=== PATIENT | female | born 1950 | race Caucasian/White ===

== ENCOUNTER → 2018-03-08 11:27 | Outpatient (CLI) | payer OTHER, SELFPAY ==
--- NOTE | 2018-03-08 | DI.MG.S_ITS ---
BILATERAL DIGITAL SCREENING MAMMOGRAM 3D/2D WITH CAD: 03/08/2018 CLINICAL: Routine screening. Comparison is made to exams dated: 02/03/2016 mammogram, 12/30/2014 mammogram, and 12/22/2014 mammogram - [facility]. There are scattered fibroglandular elements in both breasts. Current study was also evaluated with a Computer Aided Detection (CAD) system. No significant masses, calcifications, or other findings are seen in either breast. There has been no significant interval change. IMPRESSION: NEGATIVE There is no mammographic evidence of malignancy. A 1 year screening mammogram is recommended. This exam was interpreted at Station ID: [id number]. NOTE: For mammograms, a report in lay terms will be sent to the patient. Approximately 15% of breast malignancies will not be visualized mammographically. In the management of a palpable breast mass, a negative mammogram must not discourage biopsy of a clinically suspicious lesion. Electronically Signed By: Alicia jordan/kemal:03/08/2018 12:47:03 letter sent: Normal Exam ACR BI-RADS Category 1: Negative 3341F
== END ==
PROVIDERS: Visit Provider Family Medicine
DX: Z12.31 Encounter for screening mammogram for malignant neoplasm of breast (principal)
CPT/HCPCS: 77063; 77067

== ENCOUNTER → 2018-04-19 11:31 | Outpatient (CLI) | payer OTHER, SELFPAY ==
--- NOTE | 2018-04-19 | DI.RAD.S_ITS ---
PROCEDURE: XR KNEE RT 3V INDICATIONS: RIGHT KNEE PAIN, S/P PIVOTING INJURY 2 WEEKS AGO TECHNIQUE: 3 views of the knee were acquired. COMPARISON: None. FINDINGS: Bones: No fractures or dislocations. No suspicious bony lesions. Joint space narrowing is most marked in the medial and femoral patellar compartments. Marginal bony spurring at all 3 compartments. Soft tissues: Large joint effusion. No suspicious soft tissue calcifications. IMPRESSION: 1. Tricompartmental osteoarthritis 2. Large joint effusion could reflect internal derangement. Dictated by: Tobias Peter M.D. on 04/19/2018 at 13:02 Approved by: Tobias Peter M.D. on 04/19/2018 at 13:03
== END ==
PROVIDERS: Family Provider Orthopaedic Surgery; Visit Provider Nurse Practitioner Family
DX: M25.461 Effusion, right knee (principal); M17.11 Unilateral primary osteoarthritis, right knee; M25.561 Pain in right knee
CPT/HCPCS: 73562

== ENCOUNTER → 2018-08-28 10:29 | Outpatient (CLI) | payer OTHER, SELFPAY ==
--- NOTE | 2018-08-28 | DI.RAD.S_ITS ---
PROCEDURE: XR FOREARM RT 2V INDICATIONS: RIGHT FOREARM PAIN TECHNIQUE: 2 views of the forearm were acquired. COMPARISON: None. FINDINGS: Bones: No fractures or dislocations. No suspicious bony lesions. Mild osteophytic changes along radial aspect of right wrist and right elbow joint is seen. Soft tissues: No suspicious soft tissue calcifications or masses. IMPRESSION: Mild osteoarthritic changes in the right wrist and right elbow joints. No fracture or dislocation. Dictated by: Denzel Morfin M.D. on 08/28/2018 at 12:12 Approved by: Denzel Morfin M.D. on 08/28/2018 at 12:13
== END ==
PROVIDERS: Family Provider Orthopaedic Surgery; PCP Family Medicine; Visit Provider Family Medicine
DX: M79.631 Pain in right forearm (principal); M19.021 Primary osteoarthritis, right elbow; M19.031 Primary osteoarthritis, right wrist
CPT/HCPCS: 73090

== ENCOUNTER → 2018-12-19 10:20 | Outpatient (CLI) | payer OTHER, SELFPAY ==
--- NOTE | 2018-12-19 | DI.RAD.S_ITS ---
PROCEDURE: XR FOOT LT MIN 3V INDICATIONS: FOREFOOT PAIN 2ND AND 3RD METATARSALS TECHNIQUE: 3 views of the foot were acquired. COMPARISON: [facility], , FOOT 3V LEFT, 11/29/2012, 15:36. FINDINGS: Bones: No fractures or dislocations. No suspicious bony lesions. Note is made of an accessory ossicle at the lateral base of the third proximal phalanx. The exostosis previously identified at the lateral border of the base of the first proximal phalanx is unchanged. An accessory ossicle is lateral to the cuboid bone. Soft tissues: No tibiotalar joint effusion. Achilles tendon appears normal. IMPRESSION: Accessory ossicles as discussed, and also exostosis at the base of the first proximal phalanx laterally all appear stable over time. No recent trauma suspected. Dictated by: Leo Winters M.D. on 12/19/2018 at 10:48 Approved by: Leo Winters M.D. on 12/19/2018 at 10:50
== END ==
PROVIDERS: PCP Family Medicine; Visit Provider Family Medicine
DX: M79.672 Pain in left foot (principal); M89.9 Disorder of bone, unspecified
CPT/HCPCS: 73630

== ENCOUNTER → 2019-03-13 10:05 | Outpatient (CLI) | payer OTHER, SELFPAY ==
--- NOTE | 2019-03-13 | DI.MG.S_ITS ---
BILATERAL DIGITAL SCREENING MAMMOGRAM 3D/2D WITH CAD: 03/13/2019 CLINICAL: Routine screening. Comparison is made to exams dated: 03/08/2018 mammogram - [facility], 02/03/2016 mammogram, and 12/30/2014 mammogram - [facility]. There are scattered fibroglandular elements in both breasts. Current study was also evaluated with a Computer Aided Detection (CAD) system. No significant masses, calcifications, or other findings are seen in either breast. There has been no significant interval change. IMPRESSION: NEGATIVE There is no mammographic evidence of malignancy. A 1 year screening mammogram is recommended. This exam was interpreted at Station ID: [id number]. NOTE: For mammograms, a report in lay terms will be sent to the patient. Approximately 15% of breast malignancies will not be visualized mammographically. In the management of a palpable breast mass, a negative mammogram must not discourage biopsy of a clinically suspicious lesion. Electronically Signed By: Ender steve/kemal:03/13/2019 11:54:16 letter sent: Normal Exam ACR BI-RADS Category 1: Negative 3341F
== END ==
PROVIDERS: PCP Family Medicine; Visit Provider Family Medicine
DX: Z12.31 Encounter for screening mammogram for malignant neoplasm of breast (principal)
CPT/HCPCS: 77063; 77067

== ENCOUNTER → 2020-03-26 14:25 | Outpatient (CLI) | payer OTHER, SELFPAY ==
--- NOTE | 2020-03-26 | DI.MG.S_ITS ---
BILATERAL DIGITAL SCREENING MAMMOGRAM 3D/2D WITH CAD: 03/26/2020 CLINICAL: Routine screening. Comparison is made to exams dated: 03/13/2019 mammogram and 03/08/2018 mammogram - [facility]. There are scattered fibroglandular elements in both breasts. Current study was also evaluated with a Computer Aided Detection (CAD) system. No significant masses, calcifications, or other findings are seen in either breast. There has been no significant interval change. IMPRESSION: NEGATIVE There is no mammographic evidence of malignancy. A 1 year screening mammogram is recommended. This exam was interpreted at Station ID: [id number]. NOTE: For mammograms, a report in lay terms will be sent to the patient. Approximately 15% of breast malignancies will not be visualized mammographically. In the management of a palpable breast mass, a negative mammogram must not discourage biopsy of a clinically suspicious lesion. Electronically Signed By: Sylvain cedillo/kemal:03/26/2020 19:08:33 letter sent: Normal Exam ACR BI-RADS Category 1: Negative 3341F
== END ==
PROVIDERS: PCP Family Medicine; Referring Provider Family Medicine; Visit Provider Family Medicine
DX: Z12.31 Encounter for screening mammogram for malignant neoplasm of breast (principal); Z78.0 Asymptomatic menopausal state; R29.890 Loss of height
CPT/HCPCS: 77063; 77067; 77080

== ENCOUNTER → 2021-04-07 10:26 | Outpatient (CLI) | payer OTHER, SELFPAY ==
--- NOTE | 2021-04-07 | DI.MG.S_ITS ---
BILATERAL DIGITAL SCREENING MAMMOGRAM 3D/2D WITH CAD: 04/07/2021 CLINICAL: Routine screening. Comparison is made to exams dated: 03/26/2020 mammogram, 03/13/2019 mammogram, and 03/08/2018 mammogram - [facility]. There are scattered fibroglandular elements in both breasts. Current study was also evaluated with a Computer Aided Detection (CAD) system. No significant masses, calcifications, or other findings are seen in either breast. There has been no significant interval change. IMPRESSION: NEGATIVE There is no mammographic evidence of malignancy. A 1 year screening mammogram is recommended. This exam was interpreted at Station ID: [id number]. NOTE: For mammograms, a report in lay terms will be sent to the patient. Approximately 15% of breast malignancies will not be visualized mammographically. In the management of a palpable breast mass, a negative mammogram must not discourage biopsy of a clinically suspicious lesion. Electronically Signed By: Ender steve/kemal:04/07/2021 10:46:46 letter sent: Normal Exam ACR BI-RADS Category 1: Negative 3341F
== END ==
PROVIDERS: PCP Family Medicine; Referring Provider Family Medicine; Visit Provider Family Medicine
DX: Z12.31 Encounter for screening mammogram for malignant neoplasm of breast (principal)
CPT/HCPCS: 77063; 77067

== ENCOUNTER → 2021-08-11 14:57 | Outpatient (CLI) | payer OTHER, SELFPAY ==
--- NOTE | 2021-08-11 14:59 | DI.RAD.S_ITS ---
PROCEDURE: XR HIP W PEL IF DONE RT 2V INDICATIONS: RT HIP PAIN TECHNIQUE: AP pelvis with lateral view(s) of the right hip(s). COMPARISON: None. FINDINGS: Bones: No fractures or dislocations. Pelvic ring appears intact. No suspicious bony lesions. Moderate right and [id number] left degenerative hip joint space narrowing. Periarticular osteophytes are present. No erosions. Degenerative changes are present within the lower lumbar spine. Soft tissues: The visualized bowel gas pattern is normal. No suspicious soft tissue calcifications. IMPRESSION: Arthritic changes within the hips and lower lumbar spine. Dictated by: Kaley Byrd M.D. on 08/11/2021 at 16:51 Approved by: Kaley Byrd M.D. on 08/11/2021 at 16:52
== END ==
PROVIDERS: PCP Family Medicine; Referring Provider Family Medicine; Visit Provider Family Medicine
DX: M25.551 Pain in right hip (principal); M47.816 Spondylosis without myelopathy or radiculopathy, lumbar region
CPT/HCPCS: 73502

== ENCOUNTER 2021-09-15 11:00 | Emergency (ER) | payer OTHER, SELFPAY ==
[2021-09-15] VITALS (7 sets, daily range): BP systolic 112–155; BP diastolic 66–89; PULSE 86–109; RESP 14–24; TEMP 36.3; O2SAT 95–97; BMI 36.8
--- NOTE | 2021-09-15 11:39 | DI.RAD.S_ITS ---
PROCEDURE: XR CHEST 1V INDICATIONS: chest pain TECHNIQUE: One view of the chest was acquired. COMPARISON: None. FINDINGS: Surgical changes and devices: None. Lungs and pleura: Lungs are clear. No pleural effusions or pneumothorax. Mediastinum: Mediastinal contours appear normal. Heart size is normal. Bones and chest wall: No suspicious bony lesions. Overlying soft tissues appear unremarkable. IMPRESSION: No acute process. Dictated by: Karen Steven M.D. on 09/15/2021 at 12:00 Approved by: Karen Steven M.D. on 09/15/2021 at 12:01
--- NOTE | 2021-09-15 12:45 | ED.GENADULT ---
HPI - General Adult General Chief complaint: Shortness of Breath/Dyspnea Stated complaint: SOB, Flux BP Time Seen by Provider: 09/15/21 12:44 Source: patient Mode of arrival: Ambulatory History of Present Illness HPI narrative: 71-year-old woman with history of hypertension and reflux presents with 24 hours of exertional dyspnea. She notes that yesterday while at work, with increased stresses and physical activity during the day, her blood pressure was fluctuating with numbers noted is low as 80/60 with minor tachycardia in the 110-120 range. She began drinking more water in the afternoon and was feeling better by the evening. This morning still having the exertional dyspnea and concerned enough that she comes in for further evaluation. She denies any recent fever, cough, chills. No recent headaches, nausea, vomiting, diarrhea, change to bowel or bladder habits and no black stools. Denies any abdominal pain, lower extremity edema, orthopnea. Is not having any palpitations. Related Data Home Medications Medication Instructions Recorded Confirmed aspirin 81 mg tablet,delayed 81 mg PO QDAY #0 05/10/16 release hydrochlorothiazide 25 mg tablet 25 mg PO QDAY #0 05/10/16 omeprazole 20 mg capsule,delayed 20 mg PO QDAY #0 05/10/16 release Allergies Allergy/AdvReac Type Severity Reaction Status Date / Time meperidine [From DEMEROL] Allergy Mild VOMITING Unverified 01/03/18 13:01 Sulfa (Sulfonamide Allergy Mild HIVES Unverified 01/03/18 13:01 Antibiotics) [SULFA (SULFONAMIDE ANTIBIOTICS)] Review of Systems Review of Systems Narrative: Remainder of complete review of systems is otherwise unremarkable except for that included in the HPI. Patient History Medical History (Updated 09/15/21 @ 14:07 by Rosi Preciado MD) Acid reflux Hypertension Social History Smoking Status: Never smoker Smoking Status: Never smoker alcohol intake frequency: 0-2 drinks per day Substance Use Type: does not use Exam Narrative Exam Narrative: General: Healthy appearing, in no acute distress. Able to give a complete and coherent history. Well-nourished well-developed HEENT: Moist mucous membranes, normal sclera with reactive pupils, Neck: No JVD, supple Respiratory: Lungs are clear to auscultation, no wheezing no rales no rhonchi. Full and symmetrical air movement Cardiac: Regular rate and rhythm no murmurs no bruits Abdomen: Soft, nontender, good bowel tones, no flank pain Skin: Warm and dry, no rashes Neurologic: Grossly neurologically intact with no obvious asymmetries or abnormalities Extremities: No trauma, well perfused, no lower extremity edema Psych: Cooperative, appropriate insight and affect Initial Vital Signs Initial Vital Signs: Vital Signs Temperature 97.4 F L 09/15/21 11:34 Pulse Rate 109 H 09/15/21 11:34 Respiratory Rate 16 09/15/21 11:34 Blood Pressure 155/89 H 09/15/21 11:34 Pulse Oximetry 96 09/15/21 11:34 Course Orders Ordered: ED Orders 09/15/21 11:39 XR chest 1V Stat EKG-12 Lead Stat 09/15/21 12:40 Complete Blood Count AUTO DIFF Stat Comprehensive Metabolic Panel Stat Lipase Stat Magnesium Stat Troponin & CK Cardiac Panel Stat Vital Signs Vital signs: Vital Signs - 8 hr 09/15/21 11:34 09/15/21 12:47 09/15/21 13:00 Temperature 97.4 F L Pulse Rate 109 H 107 H 92 H Respiratory Rate 16 24 18 Blood Pressure 155/89 H Pulse Oximetry 96 97 96 09/15/21 13:30 09/15/21 13:33 Temperature Pulse Rate 92 H 99 H Respiratory Rate 20 19 Blood Pressure 120/66 Pulse Oximetry 95 96 Medical Decision Making Lab Data Result diagrams: 09/15/21 12:40 09/15/21 12:40 Labs: Lab Results 09/15/21 09/15/21 Range/Units 12:40 12:40 WBC 10.6 (4.5-11.0) X10^3/uL RBC 4.56 (4.0-5.2) X10^6/uL Hgb 14.1 (12.0-16.0) g/dL Hct 40.9 (36-46) % MCV 89.8 (80-100) fL MCH 30.9 (26-34) PG MCHC 34.5 (30-36) % RDW 13.5 (11.6-14.8) % Plt Count 241 (150-400) X10^3/uL Neut % (Auto) 62.2 (50-75) % Lymph % (Auto) 26.5 (25-40) % [place] % (Auto) 8.6 (3-14) % Eos % (Auto) 2.0 (2-4) % Baso % (Auto) 0.7 (0-2) % Neut # (Auto) 6600 (6691-4861) /uL Lymph # (Auto) 2800 (2145-3700) /uL [place] # (Auto) 900 (0-900) /uL Eos # (Auto) 200 (0-450) /uL Baso # (Auto) 100 (0-100) /uL Sodium 139 (137-145) mmol/L Potassium 4.5 (3.4-5.1) mmol/L Chloride 103 (98-107) mmol/L Carbon Dioxide 33 H (22-32) mmol/L BUN 25 H (7-17) mg/dL Creatinine 0.85 (0.52-1.04) mg/dL Estimated GFR > 60.0 (>60) mL/min BUN/Creatinine Ratio 29.4 H (6-22) Glucose 135 H (80-110) mg/dL Calcium 10.1 (8.4-10.2) mg/dL Magnesium 2.2 (1.6-2.3) mg/dL Total Bilirubin 0.4 (0.2-1.3) mg/dL AST 23 (14-36) IU/L ALT 16 (<35) IU/L Alkaline Phosphatase 58 (38-126) U/L Total Creatine Kinase 46 (30-135) U/L CK-MB (CK-2) TNP CK-MB (CK-2) Rel Index TNP Troponin I < 0.012 (0.01-0.034) ng/mL Total Protein 7.8 (6.3-8.2) g/dL Albumin 4.3 (3.5-5.0) g/dL Globulin 3.5 (1.7-4.1) g/dL Albumin/Globulin Ratio 1.2 (1.0-2.8) Lipase 45 (23-300) U/L Imaging Data Chest x-ray: Radiologist's Impression: FINDINGS:? ? Surgical changes and devices:? None.? ? Lungs and pleura:? Lungs are clear.? No pleural effusions or pneumothorax.? ? Mediastinum:? Mediastinal contours appear normal.? Heart size is normal.? ? Bones and chest wall:? No suspicious bony lesions.? Overlying soft tissues appear unremarkable.? ? IMPRESSION:? No acute process. ? ? Dictated by: Karen Steven M.D. on 09/15/2021 at 12:00? ?? ECG Data Interpretation: Sinus tachycardia at a rate of 109 No acute ischemic changes Normal intervals, normal axis MDM Narrative Medical decision making narrative: 71-year-old woman who presents with exertional dyspnea and general malaise noted yesterday. Blood pressure had been a bit low and was as low as 80/60 came out nicely through the day in her symptoms did improve. She has no clinical signs of symptoms of stroke, acute coronary syndrome or actual heart attack, no pulmonary abnormalities including pneumothorax. She has normal liver and kidney function studies and no evidence of anemia. Today her exertional dyspnea has improved significantly. She had intermittent episodes of sinus tachycardia documented while she is reporting blood pressures. Today at rest blood pressure was 118/72 with resting heart rate of 82. I suspect that she is mildly dehydrated and have suggested that she stop her hydrochlorothiazide and increase her lisinopril to 10 mg. She will check blood pressures and heart rate daily and follow-up with her primary care physician. At this point she is safe for home discharge, have reviewed all findings with her and questions were answered. Discharge Plan Departure Patient Disposition: Home Clinical Impression: Hypertension, Shortness of Breath Instructions: DI for Shortness of Breath Activity Restrictions/Additional Instructions: Thank you for coming in today Your workup is very reassuring. I am not finding any life-threatening explanations to explain your dyspnea. Specifically there is no evidence of heart attack or acute coronary. You do not have heart failure, pneumonia, chronic abnormalities on your chest x-ray, pneumothorax, any signs of anemia or liver or kidney abnormalities appreciated with blood work Given your relative hypotension noted yesterday when you were feeling poorly I suspect that you are moderately dehydrated. I suspect hydrochlorothiazide may be responsible for this. I am going to ask you to STOP your hydrochlorthize Please incsrease your lisinopril to 10mg Please check blood pressures and heart rate daily for the next week and schedule a follow up apt with your PCP. If you have symptoms that are worsening, please feel free to return to the ER Prescriptions: No Action aspirin 81 MG tablet,delayed release (DR/EC) 81 mg PO QDAY Qty: 0 0RF omeprazole 20 MG capsule,delayed release(DR/EC) 20 mg PO QDAY Qty: 0 0RF hydrochlorothiazide 25 MG tablet 25 mg PO QDAY Qty: 0 0RF Referrals: Ashu Espinosa MD [Primary Care Provider] -
[2021-09-15 12:51] LABS: Add Manual Diff / Slide Review NO; Basophils Absolute Auto 100 /uL (0-100); Basophils Percent Auto 0.7 % (0-2); Eosinophils Absolute Auto 200 /uL (0-450); Hematocrit 40.9 % (36-46); Hemoglobin 14.1 g/dL (12.0-16.0); Lymphocytes Absolute Auto 2800 /uL (1100-4500); Lymphocytes Percent Auto 26.5 % (25-40); Mean Corpuscular HGB Conc 34.5 % (30-36); Mean Corpuscular Hemoglobin 30.9 PG (26-34); Mean Corpuscular Volume 89.8 fL (80-100); Monocytes Absolute Auto 900 /uL (0-900); Monocytes Percent Auto 8.6 % (3-14); Neutrophils Absolute Auto 6600 /uL (1500-7000); Neutrophils Percent Auto 62.2 % (50-75); Platelet Count 241 X10^3/uL (150-400); Red Blood Cell Count 4.56 X10^6/uL (4.0-5.2); Red Cell Distribution Width 13.5 % (11.6-14.8); White Blood Cell Count 10.6 X10^3/uL (4.5-11.0)
[2021-09-15 13:03] LABS: Alanine Aminotransferase 16 IU/L (<35); Albumin 4.3 g/dL (3.5-5.0); Albumin Globulin Ratio 1.2 (1.0-2.8); Alkaline Phosphatase 58 U/L (38-126); Aspartate Aminotransferase 23 IU/L (14-36); BUN Creatinine Ratio 29.4 (6-22); Bilirubin Total 0.4 mg/dL (0.2-1.3); Blood Urea Nitrogen 25 mg/dL (7-17); Calcium 10.1 mg/dL (8.4-10.2); Carbon Dioxide 33 mmol/L (22-32); Chloride 103 mmol/L (98-107); Creatine Kinase 46 U/L (30-135); Estimated Glomerular Filt Rate > 60.0 mL/min (>60); Globulin 3.5 g/dL (1.7-4.1); Glucose 135 mg/dL (80-110); HEMOLYSIS 16 (0-50); Lipase 45 U/L (23-300); Magnesium 2.2 mg/dL (1.6-2.3); Potassium 4.5 mmol/L (3.4-5.1); Sodium 139 mmol/L (137-145); Total Protein 7.8 g/dL (6.3-8.2)
[2021-09-15 13:15] LABS: Troponin I < 0.012 ng/mL (0.01-0.034)
== END 2021-09-15 14:43 | disposition home or self-care (01) ==
PROVIDERS: Emergency Provider Emergency Medicine; PCP Family Medicine
DX: I10 Essential (primary) hypertension (principal); R06.02 Shortness of breath; R00.0 Tachycardia, unspecified
CPT/HCPCS: 36415; 71045; 80053; 82550; 83690; 83735; 84484; 85025; 93005; 99284

== ENCOUNTER → 2022-04-09 10:39 | Outpatient (CLI) | payer OTHER, SELFPAY ==
--- NOTE | 2022-04-09 10:40 | DI.MG.S_ITS ---
BILATERAL DIGITAL SCREENING MAMMOGRAM 3D/2D WITH CAD: 04/09/2022 CLINICAL: Routine screening. Comparison is made to exams dated: 04/07/2021 mammogram, 03/26/2020 mammogram, 03/13/2019 mammogram, and 03/08/2018 mammogram - [facility]. There are scattered fibroglandular elements in both breasts. Current study was also evaluated with a Computer Aided Detection (CAD) system. No significant masses, calcifications, or other findings are seen in either breast. There has been no significant interval change. IMPRESSION: NEGATIVE There is no mammographic evidence of malignancy. A 1 year screening mammogram is recommended. Based on the Tyrer Cuzick model (a risk assessment model) the patient's lifetime risk is 5.7% and her 10 year risk is 3.9%. According to the ACR, ACS, and NCCN guidelines, an annual breast MRI exam along with mammogram is recommended if the patient's lifetime risk is 20% or greater. This exam was interpreted at Station ID: [id number]. NOTE: For mammograms, a report in lay terms will be sent to the patient. Approximately 15% of breast malignancies will not be visualized mammographically. In the management of a palpable breast mass, a negative mammogram must not discourage biopsy of a clinically suspicious lesion. Electronically Signed By: Sylvain cedillo/kemal:04/11/2022 09:09:23 letter sent: Normal Exam ACR BI-RADS Category 1: Negative 3341F
== END ==
PROVIDERS: PCP Family Medicine; Referring Provider Family Medicine; Visit Provider Family Medicine
DX: Z12.31 Encounter for screening mammogram for malignant neoplasm of breast (principal)
CPT/HCPCS: 77063; 77067

== ENCOUNTER → 2022-11-10 10:38 | Outpatient (CLI) | payer OTHER, SELFPAY ==
--- NOTE | 2022-11-10 | DI.RAD.S_ITS ---
PROCEDURE: XR HAND RT MIN 3V INDICATIONS: R thumb pain TECHNIQUE: 3 views of the hand(s) acquired. COMPARISON: None. FINDINGS: Bones: No fractures or dislocations. Osteoarthritic changes are noted throughout right hand and wrist joints more notably at 1st CMC joint, 1st interphalangeal joint and 2nd and 3rd distal interphalangeal joints. No gross bony erosive changes. Carpal bones are normally aligned. No suspicious bony lesions. Soft tissues: No suspicious soft tissue calcifications. IMPRESSION: Osteoarthritic changes are noted throughout right hand and wrist joints as above. No fracture or dislocation. No gross bony erosive changes. Dictated by: Denzel Morfin M.D. on 11/10/2022 at 13:46 Approved by: Denzel Morfin M.D. on 11/10/2022 at 13:51
== END ==
PROVIDERS: PCP Family Medicine; Referring Provider Family Medicine; Visit Provider Family Medicine
DX: Z78.0 Asymptomatic menopausal state (principal); M79.644 Pain in right finger(s); Z13.820 Encounter for screening for osteoporosis
CPT/HCPCS: 73130; 77080

== ENCOUNTER → 2023-04-19 15:02 | Outpatient (CLI) | payer OTHER, SELFPAY ==
--- NOTE | 2023-04-19 | DI.MG.S_ITS ---
BILATERAL DIGITAL SCREENING MAMMOGRAM 3D/2D WITH CAD: 04/19/2023 CLINICAL: Routine screening. Comparison is made to exams dated: 04/09/2022 mammogram, 04/07/2021 mammogram, 03/26/2020 mammogram, and 03/13/2019 mammogram - [facility]. There are scattered areas of fibroglandular density in both breasts (category b / 25%-50% glandular tissue). Current study was also evaluated with a Computer Aided Detection (CAD) system. No significant masses, calcifications, or other findings are seen in either breast. There has been no significant interval change. IMPRESSION: NEGATIVE There is no mammographic evidence of malignancy. A 1 year screening mammogram is recommended. Based on the Tyrer Cuzick model (a risk assessment model) the patient's lifetime risk is 5.4% and her 10 year risk is 4.0%. According to the ACR, ACS, and NCCN guidelines, an annual breast MRI exam along with mammogram is recommended if the patient's lifetime risk is 20% or greater. This exam was interpreted at Station ID: [id number]. NOTE: For mammograms, a report in lay terms will be sent to the patient. Approximately 15% of breast malignancies will not be visualized mammographically. In the management of a palpable breast mass, a negative mammogram must not discourage biopsy of a clinically suspicious lesion. Electronically Signed By: Sylvain cedillo/kemal:04/20/2023 14:26:41 letter sent: Normal Exam ACR BI-RADS Category 1: Negative 3341F
== END ==
PROVIDERS: PCP Family Medicine; Referring Provider Family Medicine; Visit Provider Family Medicine
DX: Z12.31 Encounter for screening mammogram for malignant neoplasm of breast (principal)
CPT/HCPCS: 77063; 77067

== ENCOUNTER → 2024-05-01 11:16 | Outpatient (CLI) | payer OTHER, SELFPAY ==
--- NOTE | 2024-05-01 | DI.MG.S_ITS ---
BILATERAL DIGITAL SCREENING MAMMOGRAM 3D/2D WITH CAD: 05/01/2024 CLINICAL: Routine screening. Comparison is made to exams dated: 04/19/2023 mammogram, 04/09/2022 mammogram, and 04/07/2021 mammogram - [facility]. There are scattered areas of fibroglandular density in both breasts (category b / 25%-50% glandular tissue). Current study was also evaluated with a Computer Aided Detection (CAD) system. No significant masses, calcifications, or other findings are seen in either breast. There has been no significant interval change. IMPRESSION: NEGATIVE There is no mammographic evidence of malignancy. A 1 year screening mammogram is recommended. Based on the Tyrer Cuzick model (a risk assessment model) the patient's lifetime risk is 5.1% and her 10 year risk is 4.1%. According to the ACR, ACS, and NCCN guidelines, an annual breast MRI exam along with mammogram is recommended if the patient's lifetime risk is 20% or greater. This exam was interpreted at Station ID: [id number]. NOTE: For mammograms, a report in lay terms will be sent to the patient. Approximately 15% of breast malignancies will not be visualized mammographically. In the management of a palpable breast mass, a negative mammogram must not discourage biopsy of a clinically suspicious lesion. Electronically Signed By: Enrique gonzalez/kemal:05/01/2024 13:30:20 letter sent: Normal Exam ACR BI-RADS Category 1: Negative 3341F
== END ==
PROVIDERS: PCP Family Medicine; Referring Provider Family Medicine; Visit Provider Family Medicine
DX: Z12.31 Encounter for screening mammogram for malignant neoplasm of breast (principal); R92.323 Mammographic fibroglandular density, bilateral breasts
CPT/HCPCS: 77063; 77067

== ENCOUNTER → 2025-04-02 10:06 | Outpatient (CLI) | payer OTHER, SELFPAY ==
--- NOTE | 2025-04-02 10:08 | DI.RAD.S_ITS ---
PROCEDURE: XR KNEE RT 3V INDICATIONS: BILATERAL KNEE PAIN TECHNIQUE: 3 views of the knee were acquired. COMPARISON: [facility], , XR KNEE RT 3V, 04/19/2018, 11:23. 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 No effusion. Slight lateral patellar subluxation on the sunrise view Soft tissues: Normal IMPRESSION: Degeneration . Mild lateral patellar subluxation. Dictated by: Shane Villanueva M.D. on 04/03/2025 at 11:44 Approved by: Shane Villanueva M.D. on 04/03/2025 at 11:45
--- NOTE | 2025-04-02 10:08 | DI.RAD.S_ITS ---
PROCEDURE: XR KNEE LT 3V INDICATIONS: BILATERAL KNEE PAIN TECHNIQUE: 3 views of the knee were acquired. COMPARISON: [facility], CR, XR KNEE RT 3V, 04/19/2018, 11:23. 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 Effusion Soft tissues: Normal IMPRESSION: Severe degeneration Dictated by: Shane Villanueva M.D. on 04/03/2025 at 11:43 Approved by: Shane Villanueva M.D. on 04/03/2025 at 11:44
== END ==
PROVIDERS: PCP Family Medicine; Referring Provider Family Medicine; Visit Provider Family Medicine
DX: S83.011A Lateral subluxation of right patella, initial encounter (principal); M17.11 Unilateral primary osteoarthritis, right knee; M25.561 Pain in right knee; M25.562 Pain in left knee; G89.29 Other chronic pain
CPT/HCPCS: 73562

== ENCOUNTER → 2025-06-27 14:51 | Outpatient (CLI) | payer OTHER, SELFPAY ==
--- NOTE | 2025-06-27 14:52 | DI.ECHO.S_ITS ---
[facility]+ [facility] : : [address] : : [place] : : [id number] : : Phone: [phone] Echocardiogram Report + + :Name: MONSE AVELAR Study Date: 06/27/2025 Height: 66 in : :Hospital ReadingLocation: Weight: 250 lb : : Gender: Female BSA: 2.2 m2 : :: 1950 Age: 75 yrs BP: 131/88 mmHg: :Reason For Study: Murmur, shortness of breath : :Ordering Physician: MAO : :NETO Performed By: Mook Manzo : :Referring: NETO CAVANAUGH : + + Interpretation Summary Left ventricular wall thickness is mildly increased. The ejection fraction is estimated to be 65-70%. Diastolic function is indeterminate. The right ventricle is normal in size and function. No significant valvular abnormalities. Pulmonary artery pressures cannot be estimated because of the lack of a measurable TR jet velocity but the IVC suggests a CVP of around 3 mmHg. Procedure: A two-dimensional transthoracic echocardiogram with color flow and Doppler was performed. The study quality was technically adequate. There is no prior echocardiogram noted for this patient. The patient was in normal sinus rhythm during the exam. Left Ventricle: The left ventricle is normal in size. Left ventricular wall thickness is mildly increased. Left ventricular systolic function is normal. The ejection fraction is estimated to be 65-70%. There are no focal wall motion abnormalities. Diastolic function is indeterminate. Right Ventricle: The right ventricle is normal in size and function. Atria: The left atrial size is normal. Right atrial size is normal. There is no Doppler evidence for an interatrial shunt. Mitral Valve: The mitral valve leaflets appear to open well. There is no mitral valve stenosis. There is trace mitral regurgitation. Aortic Valve: The aortic valve is trileaflet. The aortic valve opens well. There is no aortic valve stenosis. No aortic regurgitation is present. Tricuspid Valve: The tricuspid valve leaflets are thin and pliable. There is trace tricuspid regurgitation. Pulmonary artery pressures cannot be estimated because of the lack of a measurable TR jet velocity but the IVC suggests a CVP of around 3 mmHg. Pulmonic Valve: The pulmonic valve is not well seen, but is grossly normal. There is trace pulmonic regurgitation. Great Vessels: The aortic root is normal size. The ascending aorta is normal in size. The aortic arch could not be visualized. The pulmonary is not well visualized. The IVC is of normal diameter and collapses greater than 50% with a sniff. This suggests a low right atrial pressure of 3 mm Hg. Pericardium/ Pleura There is no pericardial effusion. MMode/2D Measurements & Calculations LVIDd: 3.5 cm LVOT diam: 2.0 cm LVIDs: 2.1 cm Ao root diam: 2.8 cm FS: 40.7 % asc Aorta Diam: 2.8 cm IVSd: 1.1 cm LVPWd: 1.1 cm LV costello. diameter/BSA (cm/m^2): 1.6 LV sys. diameter/BSA (cm/m^2): 0.94 LA A2 area: 16.4 cm2 RA long axis: 4.4 cm LA A4 area: 17.2 cm2 RA area: 12.9 cm2 LA length (vol): 5.6 cm RA vol: 32.2 ml LA vol: 42.3 ml RA : 14.7 ml/m2 LA vol index: 19.3 ml/m2 IVC diam: 1.3 cm RVD1 (basal): 2.6 cm RVD2 (mid): 2.2 cm TAPSE: 1.7 cm Doppler Measurements & Calculations Ao V2 max: 134.7 cm/sec LVOT Max Salomon: 88.3 cm/sec Ao V2 mean: 94.1 cm/sec LV V1 max P.1 mmHg Ao max P.3 mmHg LV V1 VTI: 15.6 cm Ao mean P.0 mmHg RADHA(I,D): 2.1 cm2 Ao V2 VTI: 22.3 cm RADHA(V,D): 2.0 cm2 sev ratio: 0.70 RADHA indexed to BSA (cm^2/m^2): 0.96 MV E max salomon: 59.1 cm/sec TR max salomon: 287.3 cm/sec MV A max salomon: 74.7 cm/sec TR max P.0 mmHg MV E/A: 0.79 PA pr(Accel): 48.2 mmHg Med Peak E' Salomon: 6.6 cm/sec E/E' med: 9.0 Lat Peak E' Salomon: 9.4 cm/sec E/E' lat: 6.3 E/e' average: 7.6 MV dec time: 0.18 sec SV(LVOT): 47.0 ml Reading Physician:04:43 PM
== END ==
LOC: ECHO 14:51
PROVIDERS: PCP Family Medicine; Referring Provider Family Medicine; Visit Provider Family Medicine
DX: I48.3 Typical atrial flutter (principal)
CPT/HCPCS: 93306